=== PATIENT | female | born 1965 | race African-American/Black ===

== ENCOUNTER 2018-02-28 20:25 | Emergency (ER) | payer BC ==
[2018-02-28] MEDS ORDERED: NORMAL SALINE 1000 ML 1,000 ML IV ONE (20:51)
[2018-02-28] MEDS ORDERED: DIPHENHYDRAMINE HCL 50 MG/ML VIAL IV ONE (20:51)
--- NOTE | 2018-02-28 20:54 | ER Document Report ---
ED General - General Chief Complaint: Headache Stated Complaint: HEADACHE Time Seen by Provider: 02/28/18 20:50 TRAVEL OUTSIDE OF THE [place] IN LAST 30 DAYS: No - HPI Notes: Patient is a 52-year-old female that presents to the emergency department for chief complaint of headache. Patient was referred here from her primary care doctor's office with a chief complaint of headache and left-sided numbness. She states her left upper and lower extremity have been numb since the beginning of February. She states she had an outpatient MRI on February 06 which showed that she may have had a stroke or TIA. Patient was told to begin taking a baby aspirin daily which she has been doing. She states she was referred to neurology but has not had her appointment yet. She denies any change in her left-sided numbness today. She denies any new numbness or weakness. She is describing a headache that is bitemporal and a squeezing sensation. It started at 6 PM today and was gradual in onset. She has a history of migraines and states this feels similar but is more severe. She had some blurry vision at onset of the headache which has now resolved. She states at the beginning of February when she had the new left- sided weakness she had double vision, double vision has not occurred since then. She denies any head injury, chest pain, shortness of breath, diaphoresis, nausea or vomiting. Patient denies photophobia and phonophobia. She has not taken medication for her headache. Past Medical History: Hypertension Past Surgical History: Reviewed in chart Social History: Denies drugs alcohol and tobacco Family History: Reviewed and noncontributory for presenting illness Allergies: Reviewed, see documented allergy list. REVIEW OF SYSTEMS: CONSTITUTIONAL : No fever No chills No diaphoresis No recent illness EENT: vision changes No congestion No sore throat CARDIOVASCULAR: No chest pain No palpitations RESPIRATORY: No shortness of breath No cough No difficulty breathing GASTROINTESTINAL: No abdominal pain No nausea No vomiting No diarrhea GENITOURINARY: No dysuria No hematuria No difficulty urinating MUSCULOSKELETAL: No back pain No leg pain No arm pain SKIN: No rashes No lesions LYMPHATIC: No swollen, enlarged glands. NEUROLOGICAL: No lightheadedness headache No weakness No paresthesias PSYCHIATRIC: No anxiety No depression PHYSICAL EXAMINATION: Vital signs reviewed, nursing noted reviewed. GENERAL: Well-appearing, well-nourished and in no acute distress. HEAD: Atraumatic, normocephalic. EYES: Eyes appear normal, extraocular movements intact, sclera anicteric, conjunctiva are normal. ENT: nares patent, oropharynx clear without exudates. Moist mucous membranes. NECK: Normal range of motion, supple without lymphadenopathy LUNGS: Breath sounds clear to auscultation bilaterally and equal. No wheezes rales or rhonchi. HEART: Regular rate and rhythm without murmurs ABDOMEN: Soft, nontender, normoactive bowel sounds. No rebound, guarding, or rigidity. No masses appreciated. EXTREMITIES: Nontender, good range of motion, no pitting or edema. NEUROLOGICAL: NIH=0, no focal neurological deficits. Moves all extremities spontaneously Motor and sensory grossly intact on exam. PSYCH: Normal mood, normal affect. SKIN: Warm, Dry, normal turgor, no rashes or lesions noted on exposed skin - Related Data Allergies/Adverse Reactions: latex Allergy (Verified 02/28/18 20:29) Past Medical History - Social History Smoking Status: Never Smoker Family History: Reviewed & Not Pertinent Physical Exam - Vital signs Vitals: Resp BP Pulse Ox 13 136/82 H 100 02/28/18 20:51 02/28/18 20:51 02/28/18 20:51 Course - Re-evaluation Re-evalutation: 02/28/18 20:54 Vitals reviewed. Nursing notes reviewed. Patient has an NIH of 0 and is not a candidate for TPA. She has no numbness today that is new. On sensory testing she reports feeling normal sensation in her bilateral upper and lower extremities. I do not detect any focal neurologic deficits. She will be given IV fluids, Reglan and Benadryl for her headache. 02/28/18 22:03 Patient reevaluated and states her vision changes have completely resolved. Her headache is very minimal. She states this headache does feel similar to previous migraines in the past. She presented with no focal or new neurologic deficits. The numbness on her left side is chronic and has been evaluated by a neurologist including workup with an MRI of her brain. Her symptoms today are l ikely related to migraine headache and not acute stroke. Her lab work is unremarkable. Patient was advised by neurology to begin taking aspirin daily which I encouraged her to continue doing. She states she is trying to get a second opinion from a different neurologist. I advised that she call her primary care doctor tomorrow morning for follow-up. Her primary care should be able to assist her in getting another neurology evaluation. I did credit counselor her at length on stroke symptoms and indications to return to the emergency room which she understands. She is stable at discharge. Laboratory 02/28/18 02/28/18 02/28/18 20:52 21:00 21:00 WBC 5.3 RBC 5.21 Hgb 13.8 Hct 42.0 MCV 81 MCH 26.5 L MCHC 33.0 RDW 14.8 H Plt Count 257 Seg Neutrophils % 46.5 Lymphocytes % 41.9 Monocytes % 6.7 Eosinophils % 4.0 Basophils % 0.9 Absolute Neutrophils 2.5 Absolute Lymphocytes 2.2 Absolute Monocytes 0.4 Absolute Eosinophils 0.2 Absolute Basophils 0.0 Sodium 139.4 Potassium 4.6 Chloride 105 Carbon Dioxide 24 Anion Gap 10 BUN 13 Creatinine 0.66 Est GFR ( Amer) > 60 Est GFR (Non-Af Amer) > 60 Glucose 92 POC Glucose 84 Calcium 9.6 Troponin I 02/28/18 21:00 WBC RBC Hgb Hct MCV MCH MCHC RDW Plt Count Seg Neutrophils % Lymphocytes % Monocytes % Eosinophils % Basophils % Absolute Neutrophils Absolute Lymphocytes Absolute Monocytes Absolute Eosinophils Absolute Basophils Sodium Potassium Chloride Carbon Dioxide Anion Gap BUN Creatinine Est GFR ( Amer) Est GFR (Non-Af Amer) Glucose POC Glucose Calcium Troponin I < 0.[address] 02/28/18 00:00 IMPRESSION: No acute intracranial abnormality is identified. Chest X-Ray 02/28/18 20:50 IMPRESSION: No evidence of acute cardiopulmonary disease. - Vital Signs Vital signs: Temp Pulse Resp BP Pulse Ox 78 17 132/74 H 100 02/28/18 21:19 02/28/18 21:19 02/28/18 21:19 02/28/18 21:19 - Laboratory Result Diagrams: 02/28/18 21:00 02/28/18 21:00 Laboratory results interpreted by me: 02/28/18 21:00 MCH 26.5 L RDW 14.8 H - EKG Interpretation by Me Additional EKG results interpreted by me: 02/28/18 21:14 Interpreted by myself 2055: Normal sinus rhythm, rate 78, normal axis, no ectopy, no ST elevation Discharge - Discharge Clinical Impression: Cephalgia Qualifiers: Headache type: unspecified Headache chronicity pattern: acute headache Intrac tability: not intractable Qualified Code(s): R51 - Headache Condition: Stable Disposition: HOME, SELF-CARE Instructions: Headache ([facility]) Additional Instructions: Please return to the emergency department if you have any worsening, or concern of your symptoms. Please return to the emergency department if you develop chest pain, difficulty breathing, severe abdominal pain, or ongoing vomiting. Please follow-up with your primary care physician in 2-3 days and any other recommended physicians. If prescribed, take all medications as directed. If you have any questions or concerns do not hesitate to return the emergency department for evaluation. Follow-up with your primary care doctor to assist in getting a second opinion by neurology. If you develop any double vision or loss of vision, confusion, difficulty speaking, facial weakness, or new numbness or weakness in your arms or legs please return immediately to the emergency room. Referrals: GONZALEZ JUARES FNP [Primary Care Provider] - Follow up in 3-5 days
--- NOTE | 2018-02-28 21:12 | RADIOLOGY REPORT (SQ) ---
EXAM DESCRIPTION: CT HEAD WITHOUT IV CONTRAST COMPLETED DATE/TME: 02/28/2018 00:00 CLINICAL HISTORY: 52 years Female HARDIN and numbness COMPARISON: None. TECHNIQUE: Contiguous axial CT images obtained through the brain without IV contrast. This exam was performed according to our department optimization program which includes automated exposure control, adjustment of the mA and/or kv according to patient size and/or use of iterative reconstruction technique. FINDINGS: The ventricles and sulci are within normal limits for the patient's age. No midline shift or mass effect. No masses identified. No acute intracranial hemorrhage. No fluid or significant mucosal thickening in the visualized paranasal sinuses. No depressed calvarial fractures. IMPRESSION: No acute intracranial abnormality is identified.
[2018-02-28 21:16] LABS: ABSOLUTE EOSINOPHILS # (AUTO) 0.2 10^3/uL (0.0-0.6); ABSOLUTE LYMPHOCYTES (AUTO) 2.2 10^3/uL (0.5-4.7); ABSOLUTE MONOCYTES (AUTO) 0.4 10^3/uL (0.1-1.4); ABSOLUTE NEUT (AUTO) 2.5 10^3/uL (1.7-8.2); BASOPHILS % (AUTO) 0.9 % (0-2); HEMOGLOBIN 13.8 g/dL (12.0-15.5); LYMPHOCYTES % (AUTO) 41.9 % (13-45); MEAN CORPUSCULAR HEMOGLOBIN 26.5 pg (27.0-33.4); MEAN CORPUSCULAR VOLUME 81 fl (80-97); MONOCYTES % (AUTO) 6.7 % (3-13); PLATELET COUNT 257 10^3/uL (150-450); RED BLOOD COUNT 5.21 10^6/uL (3.72-5.28); RED CELL DISTRIBUTION WIDTH 14.8 % (11.5-14.0); SEGMENTED NEUTROPHILS % (AUTO) 46.5 % (42-78); TOTAL CELLS COUNTED % (AUTO) 100 %; WHITE BLOOD COUNT 5.3 10^3/uL (4.0-10.5)
[2018-02-28 21:28] LABS: ANION GAP 10 (5-19); BLOOD UREA NITROGEN 13 mg/dL (7-20); CALCIUM 9.6 mg/dL (8.4-10.2); CARBON DIOXIDE 24 mmol/L (22-30); CHLORIDE 105 mmol/L (98-107); GLUCOSE 92 mg/dL (75-110); POTASSIUM 4.6 mmol/L (3.6-5.0); SODIUM 139.4 mmol/L (137-145)
--- NOTE | 2018-02-28 21:50 | RADIOLOGY REPORT (SQ) ---
EXAM DESCRIPTION: XR CHEST 1 VIEW COMPLETED DATE/TME: 02/28/2018 20:50 CLINICAL HISTORY: stroke symptoms COMPARISON: None FINDINGS: Cardiac silhouette is within normal limits. EKG leads project over the chest. Decreased lung volumes could be secondary to underinflation. There is no focal parenchymal or pleural disease. There is no acute osseous process visualized. IMPRESSION: No evidence of acute cardiopulmonary disease.
[2018-02-28 22:21] VITALS: BP 137/85
--- NOTE | 2018-03-01 14:52 | EKG REPORT ---
SEVERITY:- NORMAL ECG - SINUS RHYTHM : Confirmed by: Haja Denny 01-Mar-2018 14:52:34
== END 2018-02-28 22:21 | disposition home or self-care (01) ==
LOC: ER 20:25
DX: R51 Headache (principal); R20.0 Anesthesia of skin; I10 Essential (primary) hypertension; Z79.82 Long term (current) use of aspirin; Z86.69 Personal history of other diseases of the nervous system and sense organs; Z91.040 Latex allergy status
CPT/HCPCS: 93005; 99285; 96361; 96374; 36415; 82962; 85025; 80048; 84484; 71045; 70450; 93010; J1200; J7030

== ENCOUNTER → 2019-02-11 | Outpatient (CLI) | payer OTHER ==
--- NOTE | 2019-02-11 10:52 | WOMENS IMAGING REPORT ---
EXAM DESCRIPTION: 3D SCREENING MAMMO BILAT COMPLETED DATE/TIME: 02/11/2019 9:58 am REASON FOR STUDY: ROUTINE SCREENING MAMMOGRAM Z12.31 COMPARISON: 2009, [id number] EXAM PARAMETERS: Standard craniocaudal and mediolateral oblique views of each breast recorded using digital acquisition and breast tomosynthesis. Read with the assistance of CAD. .[facility] - [employer] Civil Engineer Helper Version 9.2 LIMITATIONS: None. FINDINGS: Findings present which are benign by mammographic criteria. No suspicious masses, calcific ations or architectural distortion. Pertinent benign findings: Left cysts. Benign mammographic findings may include one or more of the following: Smooth masses, popcorn/rim/coa rse calcifications, asymmetries, post-procedure changes, and lesions with long-standing stability. IMPRESSION: BENIGN MAMMOGRAPHIC FINDINGS. BIRADS 2 BREAST DENSITY: b. There are scattered areas of fibroglandular density. BIRAD: ASSESSMENT: 2 BENIGN FINDING(S) RECOMMENDATION: ROUTINE SCREENING COMMENT: The patient has been notified of the results by letter per SA requirements. Additional no tification policies are in place for contacting patient with suspicious or incomplete findings. Quality ID #225: The [employer] recommends an annual screening mammogram for women aged 40 years or over. This facility utilizes a reminder system to ensure that all patients receive reminder letters, and/or direct phone calls for appointments. This includes reminders for routine scr eening mammograms, diagnostic mammograms, or other Breast Imaging Interventions when appropriate. Th is patient will be placed in the appropriate reminder system. TECHNICAL DOCUMENTATION: FINDING NUMBER: (1) ASSESSMENT: (1) JOB ID: [id number] [email or web address]- All Rights Reserved Reading location - IP/workstation name: [email or web address]
== END ==
LOC: WI 09:47
PROVIDERS: ATTEND Internal Medicine
DX: Z12.31 Encounter for screening mammogram for malignant neoplasm of breast (principal)
CPT/HCPCS: 77063; 77067

== ENCOUNTER 2019-06-21 09:17 | Emergency (ER) | payer OTHER, BC ==
--- NOTE | 2019-06-21 09:40 | ER Document Report ---
ED Medical Screen (RME) - General Chief Complaint: Eye Problem Stated Complaint: LEFT EYE PAIN, SWELLING Time Seen by Provider: 06/21/19 09:33 Primary Care Provider: CHLOE BORJA DO [Primary Care Provider] - Follow up as needed Mode of Arrival: Ambulatory Information source: Patient Notes: 54-year-old female presented to ED for a swollen painful left eye. She states she went to the eye [place] [facility] due to a bump above her left eye a bump on her left eyelid a bump to the side of her face and one beside her ear and they started her on Valtrex told her if he got any worse to call back. She states she called back because the eye is getting more more swollen more more painful. Patient states they did not give her any new drops or medicines for he r eye just the Valtrex told her that she had shingles. She states when she called the patrol lady today they told her to come to the ER and get a CAT scan that he had called to the ER in order the CAT scan. I have checked with the charge nurse and no call has been made. Patient says she does have a history of glaucoma elevated cholesterol and stroke and there every day this eye is getting worse and more swollen. She states she is taking the Valtrex as ordered. I have greeted and performed a rapid initial assessment of this patient. A comprehensive ED assessment and evaluation of the patient, analysis of test results and completion of medical decision making process will be conducted by an additional ED providers. TRAVEL OUTSIDE OF THE [place] IN LAST 30 DAYS: No - Related Data Allergies/Adverse Reactions: latex Allergy (Verified 02/28/18 20:29) Past Medical History - Past Medical History Cardiac Medical History: Reports: Hx Hypercholesterolemia Pulmonary Medical History: Reports: Hx Asthma, Hx Bronchitis Neurological Medical History: Reports: Hx Migraine Renal/ Medical History: Denies: Hx Peritoneal Dialysis Past Surgical History: Reports: Hx Hysterectomy Physical Exam - Vital signs Vitals: Temp Pulse Resp BP Pulse Ox 98.6 F 86 18 135/74 H 99 06/21/19 09:19 06/21/19 09:19 06/21/19 09:19 06/21/19 09:19 06/21/19 09:19 Course - Vital Signs Vital signs: Temp Pulse Resp BP Pulse Ox 98.6 F 86 18 135/74 H 99 06/21/19 09:19 06/21/19 09:19 06/21/19 09:19 06/21/19 09:19 06/21/19 09:19 Doctor's Discharge - Discharge Referrals: CHLOE BORJA, [Primary Care Provider] - Follow up as needed
[2019-06-21 11:13] LABS: ABSOLUTE EOSINOPHILS # (AUTO) 0.1 10^3/uL (0.0-0.6); ABSOLUTE LYMPHOCYTES (AUTO) 1.5 10^3/uL (0.5-4.7); ABSOLUTE MONOCYTES (AUTO) 0.4 10^3/uL (0.1-1.4); ABSOLUTE NEUT (AUTO) 1.9 10^3/uL (1.7-8.2); BASOPHILS % (AUTO) 0.8 % (0-2); EOSINOPHILS % (AUTO) 2.2 % (0-6); HEMATOCRIT 39.4 % (36.0-47.0); HEMOGLOBIN 13.4 g/dL (12.0-15.5); MEAN CORPUSCULAR HEMOGLOBIN 28.3 pg (27.0-33.4); MEAN CORPUSCULAR HGB CONC 33.9 g/dL (32.0-36.0); MEAN CORPUSCULAR VOLUME 83 fl (80-97); MONOCYTES % (AUTO) 9.8 % (3-13); PLATELET COUNT 210 10^3/uL (150-450); RED BLOOD COUNT 4.73 10^6/uL (3.72-5.28); RED CELL DISTRIBUTION WIDTH 14.4 % (11.5-14.0); SEGMENTED NEUTROPHILS % (AUTO) 49.2 % (42-78); TOTAL CELLS COUNTED % (AUTO) 100 %; WHITE BLOOD COUNT 3.9 10^3/uL (4.0-10.5)
--- NOTE | 2019-06-21 11:26 | RADIOLOGY REPORT (SQ) ---
EXAM DESCRIPTION: CT FACIAL AREA WITHOUT IMAGES COMPLETED DATE/TIME: 06/21/2019 11:11 am REASON FOR STUDY: left periorbital swelling,Dx:shingles COMPARISON: None. TECHNIQUE: Noncontrasted images through the facial bones and orbits windowed for bone and soft tissu e. Additional coronal and sagittal reconstructed images reviewed. All images stored on PACS. All CT scanners at this facility use dose modulation, iterative reconstruction, and/or weight based d osing when appropriate to reduce radiation dose to as low as reasonably achievable (ALARA). [facility]: Dose Right [facility]: CareDose [facility]: Dose Right [facility]: Teradose 4D [facility]: [employer] RADIATION DOSE: CT Rad equipment meets quality standard of care and radiation dose reduction techniq ues were employed. CTDIvol: 30.4 mGy. DLP: 526 mGy-cm. mGy. LIMITATIONS: None. FINDINGS: FACIAL BONES: No fracture or bone lesion. ORBITS: Left preseptal periorbital soft tissue swelling. No foreign body or focal abscess. Globes i ntact. Retro-orbital soft tissues are symmetric and maintained. PARANASAL SINUSES: Clear. No significant mucosal thickening, mass or fluid. No nasal polyps. Maxill merlyn sinus outlets are patent. SOFT TISSUES: No mass or edema. INFERIOR BRAIN: Limited view. No acute findings. OTHER: No other significant finding. IMPRESSION: 1. Left preseptal orbital cellulitis. TECHNICAL DOCUMENTATION: JOB ID: [id number] Quality ID # [id number]: Final reports with documentation of one or more dose reduction techniques (e.g., Au tomated exposure control, adjustment of the mA and/or kV according to patient size, use of iterative reconstruction technique) 2010 [employer]- All Rights Reserved Reading location - IP/workstation name: [email or web address]
[2019-06-21 11:37] LABS: ALBUMIN 4.1 g/dL (3.5-5.0); ALKALINE PHOSPHATASE 113 U/L (38-126); ASPARTATE AMINO TRANSFERASE 27 U/L (14-36); BILIRUBIN,TOTAL 0.5 mg/dL (0.2-1.3); BLOOD UREA NITROGEN 14 mg/dL (7-20); CALCIUM 9.2 mg/dL (8.4-10.2); CHLORIDE 105 mmol/L (98-107); GLUCOSE 87 mg/dL (75-110); POTASSIUM 4.4 mmol/L (3.6-5.0); TOTAL PROTEIN 7.5 g/dL (6.3-8.2)
[2019-06-21 11:43] LABS: ANION GAP 3 (5-19); CARBON DIOXIDE 29 mmol/L (22-30)
[2019-06-21] MEDS ORDERED: CEFEPIME 2 GM/D5W RTU 2 GM/50 ML RTUPB IV ONE (12:15)
[2019-06-21] MEDS ORDERED: KETOROLAC TROMETHAMINE INJ/PF 30 MG/1 ML SDV IV ONE (12:16)
--- NOTE | 2019-06-21 13:36 | ER Document Report ---
Entered by LALA WILSON SCRIBE 06/21/19 1045 Acting as scribe for:JENNY SUTHERLAND MD ED Eye Complaint - General Chief Complaint: Eye Pain Stated Complaint: LEFT EYE PAIN, SWELLING Time Seen by Provider: 06/21/19 09:33 Primary Care Provider: CHLOE BORJA DO [NO LOCAL MD] - Follow up as needed Mode of Arrival: Ambulatory Information source: Patient Notes: This 54 year old female patient presents to the emergency department today with complaints of her left eye swelling. Patient states there is pain above her left eye and on her left neck. Patient states she saw an Fruit Picker x5 days ago for painful knots on the left side of her face and above her eye, and was told that they suspect she has shingles. Patient states she was given valtrex, which she has been taking since her appointment. Patient states she was going to visit the Fruit Picker in x2 days but woke up this morning with her left eye swollen. Patient states she called her Doctor and was told to come to the ED for a Head CT. Patient states her vision is blurry and has done a visual acuity test at her last appointment. Patient states it does not feel like there is anything in her eye and denies any pus draining. Patient states she has a mild headache, but it may be cause from taking the valtrex. TRAVEL OUTSIDE OF THE [place] IN LAST 30 DAYS: No - Related Data Allergies/Adverse Reactions: latex Allergy (Verified 02/28/18 20:29) Past Medical History - General Information source: Patient - Social History Smoking Status: Never Smoker Cigarette use (# per day): No Frequency of alcohol use: None Lives with: Friend Family History: Reviewed & Not Pertinent, Arthritis Patient has suicidal ideation: No Patient has homicidal ideation: No - Past Medical History Cardiac Medical History: Reports: Hx Hypercholesterolemia Pulmonary Medical History: Reports: Hx Asthma, Hx Bronchitis EENT Medical History: Reports: Eyes - Glaucoma - Uses eye drops. Neurological Medical History: Reports: Hx Migraine, Other - Vertigo. Suspected TIA in 2018. Skin Medical History: Reports Hx Eczema Past Surgical History: Reports: Hx Hysterectomy Review of Systems - Review of Systems Constitutional: No symptoms reported EENT: See HPI, Blurred vision, Other - Eye swelling Cardiovascular: No symptoms reported Respiratory: No symptoms reported Gastrointestinal: No symptoms reported Genitourinary: No symptoms reported Female Genitourinary: No symptoms reported Musculoskeletal: No symptoms reported Skin: See HPI Hematologic/Lymphatic: No symptoms reported Neurological/Psychological: See HPI, Headaches -: Yes All other systems reviewed and negative Physical Exam - Vital signs Vitals: Temp Pulse Resp BP Pulse Ox 98.6 F 86 18 135/74 H 99 06/21/19 09:19 06/21/19 09:19 06/21/19 09:19 06/21/19 09:19 06/21/19 09:19 - General General appearance: Appears well, Alert - HEENT Head: Other - Dry rash below the left eyebrow. Palpable lymphnode on the left anterior face. Eyes: Periorbital edema - Left. Conjunctiva: Normal Cornea: Normal Extraocular movements intact: Yes Eyelashes: Normal Pupils: PERRL Visual acuity- Right eye: 20/15 Visual acuity- Left eye: 0 Visual acuity- Both eyes: 0 Corrective lenses worn: Yes Fundascopic: Normal, Other - No papilledema.. No: Retinal hemorrhage - Respiratory Respiratory status: No respiratory distress Chest status: Nontender Breath sounds: Normal Chest palpation: Normal - Cardiovascular Rhythm: Regular Heart sounds: Normal auscultation Murmur: No - Abdominal Inspection: Obese Distension: No distension Bowel sounds: Normal Tenderness: Nontender - Extremities General upper extremity: Normal inspection. No: Edema General lower extremity: Normal inspection. No: Edema - Neurological Neuro grossly intact: Yes Cognition: Normal Orientation: AAOx4 - Psychological Associated symptoms: Normal affect, Normal mood - Skin Skin Temperature: Warm Skin Moisture: Dry Skin Color: Normal Course - Re-evaluation Re-evalutation: 06/21/19 13:26 Patient has completed antibiotics and repeat vision check was made with patient opening her left eye upper lid so that she could see. Patient's 2013 in the left eye in 2013 with both eyes open. Improvement in left periorbital swelling patient is able to lift her upper eyelid at this time. 06/21/19 13:[address] Henriquez, current roundhouse supervisor treating patient for her cellulitis and shingles periorbital swelling. Patient will be following up with Dr. Henriquez as an outpatient. Patient is to continue taking her Valtrex and I am adding Augmentin 875 mg twice a day for 7 days. - Vital Signs Vital signs: Temp Pulse Resp BP Pulse Ox 98.6 F 86 18 135/74 H 99 06/21/19 09:19 06/21/19 09:19 06/21/19 09:19 06/21/19 09:19 06/21/19 09:19 - Laboratory Result Diagrams: 06/21/19 11:03 06/21/19 11:03 Laboratory results interpreted by me: 06/21/19 06/21/19 11:03 11:03 WBC 3.9 L RDW 14.4 H Anion Gap 3 L Laboratory evaluation within normal limits. - Diagnostic Test Radiology reviewed: Image reviewed, Reports reviewed Radiology results interpreted by me: 06/21/19 13:31 CT scan of face shows left-sided preseptal orbital cellulitis. No other acute process noted. Discharge - Discharge Clinical Impression: Periorbital cellulitis of left eye, Shingles of eyelid Condition: Stable Disposition: HOME, SELF-CARE Additional Instructions: Cellulitis You have an infection of your skin and underlying soft tissues called cellulitis. This is due to bacteria, which can enter through any break in the skin, or even through an irritated hair follicle. Untreated, cellulitis will usually worsen. Antibiotics are required. Usually, warm packs or warm soaks, and elevation of the infected area are recommended. You should start getting better within 24 to 36 hours. Most infections respond quickly to the right medication. Follow-up care is important, however, to check for abscess (boil) formation, unsuspected foreign body, or resistant infection. If you develop fever, chills, or if the area of infection is becoming rapidly more swollen or painful, call the doctor at once. Shingles You have shingles. Shingles is caused by the chicken pox virus, The virus has been surviving dormant in a nerve cell since you had chicken pox years ago. The virus has spread down a nerve root to reach the skin. Typically, an band-like area of pain and skin sensitivity develops, then small blisters erupt in the area. Shingles lasts two or three weeks, but so metimes leaves persistent pain. You are contagious -- you can give children chicken pox. But you can't give anyone shingles. Antiviral medicines (such as acyclovir or famciclovir) can help, but the rash usually worsens for about a week. Pain medication is often given if the area hurts. Antihistamines such as Benadryl may be necessary for itching if it does not respond to soda baths and calamine lotion. Sometimes cortisone medicine or nerve-block shots are necessary if pain is severe. If the area remains severely painful as the sores heal, or if you suspect an infection developing in the sores, see your doctor. Follow-up with your roundhouse supervisor Dr. Bell. Continue same treatment for your shingles periorbital cellulitis. In addition Augmentin has been added in case there is any bacterial component to this swelling. Prescriptions: Amoxicillin/Potassium Clav [Augmentin 875-125 Tablet] 1 tab PO BID 7 Days #14 tab Referrals: CHLOE BORJA DO [NO LOCAL MD] - Follow up as needed KRISTA BELL MD [ACTIVE STAFF] - Follow up in 3-5 days I personally performed the services described in the documentation, reviewed and edited the documentation which was dictated to the scribe in my presence, and it accurately records my words and actions.
[2019-06-21 13:46] VITALS: BP 132/70
== END 2019-06-21 13:45 | disposition home or self-care (01) ==
LOC: ER 09:17
DX: L03.213 Periorbital cellulitis (principal); B02.39 Other herpes zoster eye disease; R51 Headache; Z91.040 Latex allergy status; J45.909 Unspecified asthma, uncomplicated
CPT/HCPCS: 99284; 96375; 96365; 36415; 85025; 80053; 70486; J1885; J0692

== ENCOUNTER 2019-10-13 09:33 | Emergency (ER) | payer OTHER, BC ==
--- NOTE | 2019-10-13 12:56 | RADIOLOGY REPORT (SQ) ---
EXAM DESCRIPTION: CHEST SINGLE VIEW IMAGES COMPLETED DATE/TIME: 10/13/2019 12:37 pm REASON FOR STUDY: chest pain COMPARISON: 02/28/2018 EXAM PARAMETERS: NUMBER OF VIEWS: One view. TECHNIQUE: Single frontal radiographic view of the chest acquired. RADIATION DOSE: NA LIMITATIONS: None. FINDINGS: LUNGS AND PLEURA: No opacities, masses or pneumothorax. No pleural effusion. MEDIASTINUM AND HILAR STRUCTURES: No masses. Contour normal. HEART AND VASCULAR STRUCTURES: Heart upper limits of normal in size. Normal vasculature. BONES: No acute findings. HARDWARE: None in the chest. OTHER: No other significant finding. IMPRESSION: 1. NO ACUTE RADIOGRAPHIC FINDING IN THE CHEST. TECHNICAL DOCUMENTATION: JOB ID: [id number] 2010 [employer]- All Rights Reserved Reading location - IP/workstation name: [email or web address]
--- NOTE | 2019-10-13 13:51 | ER Document Report ---
Entered by MALIKA ROGERS SCRIBE 10/13/19 1249 Acting as scribe for:MELO CRISTINA MD ED General - General Chief Complaint: Headache Stated Complaint: HEADACHE Time Seen by Provider: 10/13/19 11:40 Primary Care Provider: KLEBER,BROWN [Primary Care Provider] - Follow up as needed Mode of Arrival: Ambulatory Information source: Patient Notes: This 54 year old female patient presents to the emergency department today complaining of bilateral jaw pain yesterday that "felt like the mumps", left arm and shoulder pain that "felt like it was broken but I've never broken it before", a headache that began behind her eyes and then transitioned to a global headache, nausea, acid reflux, and bilateral ear pain. Patient reports all of those symptoms were yesterday and they have now all subsided. She reports that she went to an urgent care today and she was sent here. TRAVEL OUTSIDE OF THE [place] IN LAST 30 DAYS: No - Related Data Allergies/Adverse Reactions: latex Allergy (Verified 10/13/19 12:04) Home Medications: CoQ10. Lipitor Past Medical History - General Information source: Patient - Social History Smoking Status: Never Smoker Cigarette use (# per day): No Chew tobacco use (# tins/day): No Frequency of alcohol use: None Drug Abuse: None Lives with: Family Family History: Reviewed & Not Pertinent, Arthritis - Past Medical History Cardiac Medical History: Reports: Hx Hypercholesterolemia Pulmonary Medical History: Reports: Hx Asthma, Hx Bronchitis Neurological Medical History: Reports: Hx Migraine Skin Medical History: Reports Hx Eczema Past Surgical History: Reports: Hx Hysterectomy Review of Systems - Review of Systems Constitutional: No symptoms reported EENT: See HPI, Ear pain, Other - jaw pain Cardiovascular: No symptoms reported Respiratory: No symptoms reported Gastrointestinal: See HPI, Nausea Genitourinary: No symptoms reported Female Genitourinary: No symptoms reported Musculoskeletal: See HPI, Other - LUE pain Skin: No symptoms reported Hematologic/Lymphatic: No symptoms reported Neurological/Psychological: See HPI, Headaches -: Yes All other systems reviewed and negative Physical Exam - Vital signs Vitals: Temp Pulse Resp BP Pulse Ox 98.9 F 76 16 136/79 H 100 10/13/19 10:46 10/13/19 10:46 10/13/19 10:46 10/13/19 10:46 10/13/19 10:46 - Notes Notes: Physical Exam: General: Alert, appears well. HEENT: Normocephalic. Atraumatic. PERRL. Extraocular movements intact. No posterior oropharynx erythema or exudate, airway is patent. TMs are clear and non-bulging bilaterally. Neck: Supple. Non-tender. Respiratory: No respiratory distress. Clear and equal breath sounds bilaterally. Cardiovascular: Regular rate and rhythm. Abdominal: Obese. Non-tender. No distension. Normal Bowel Sounds. Back: No gross abnormalities. Extremities: Moves all four extremities. Upper extremities: Normal inspection. Normal ROM. Lower extremities: Normal inspection. No edema. Normal ROM. Neurological: Normal cognition. AAOx4. Normal speech. Psychological: Normal affect. Normal Mood. Skin: Warm. Dry. Normal color. Course - Re-evaluation Re-evalutation: 10/13/19 14:35 The patient was evaluated during the global COVID-19 pandemic and that diagnosis was suspected/considered upon their initial presentation. Their evaluation, treatment and testing was consistent with current guidelines for patients who present with complaints or symptoms that may be related to COVID-19. - Vital Signs Vital signs: Temp Pulse Resp BP Pulse Ox 98.9 F 76 16 136/79 H 100 10/13/19 10:46 10/13/19 10:46 10/13/19 10:46 10/13/19 10:46 10/13/19 10:46 - Laboratory Result Diagrams: 10/13/19 13:28 10/13/19 13:28 Laboratory results interpreted by me: 10/13/19 10/13/19 10/13/19 13:28 13:28 13:28 RDW 14.3 H Sodium 136.8 L Urine Ascorbic Acid 40 H - Diagnostic Test Radiology reviewed: Image reviewed, Reports reviewed - Chest x-ray does not show acute radiographic findings - EKG Interpretation by Nh EKG shows normal: Sinus rhythm, Tyner, Intervals, QRS Complexes, ST-T Waves Rate: Normal - 72 Rhythm: NSR Discharge - Discharge Clinical Impression: Jaw pain, Nausea, Earache Headache Qualifiers: Headache type: unspecified Headache chronicity pattern: unspecified pattern Intractability: not intractable Qualified Code(s): R51 - Headache Condition: Stable Disposition: HOME, SELF-CARE Instructions: COVID-19 Guidance for Persons Under Investigation Additional Instructions: Viral Syndrome The physician has diagnosed a viral infection. Viruses not only cause "colds," but can cause many different symptoms including generalized aching, fever, headache, cough, diarrhea, nausea, vomiting, and fatigue. The treatment, for the most part, is simply relief of symptoms. This means that antibiotics are usually not given. Rest, fluids, pain medications and, occasionally, medication for the specific symptoms that are most bothersome will be prescribed. Use good handwashing to avoid passing the virus to others. Shared toys should be cleaned with disinfectant. Clean the toilets, sinks, and counter surfaces in bathrooms. Launder clothing in hot water. Contact the physician if you develop any new or unusual symptoms such as severe headache, stiff neck, high fever, chest pain, productive cough, or shortness of breath. You should be rechecked if you don't see marked improve ment within seven to 10 days. Your symptoms you described from yesterday are most consistent with a viral syndrome. In this area of COVID-19 infections with multiple different type viral symptoms being reported, it is important that you also be tested for the COVID-19 virus. You should self quarantine at home until you get results of your cover test. Follow-up with your primary care provider if your symptoms continue to be a problem. RETURN TO THE EMERGENCY ROOM IF ANY NEW OR WORSENING SYMPTOMS. Referrals: [facility] [Primary [facility] Provider] - Follow up as needed I personally performed the services described in the documentation, reviewed and edited the documentation which was dictated to the scribe in my presence, and it accurately records my words and actions.
[2019-10-13 14:07] LABS: ABSOLUTE BASOPHILS # (AUTO) 0.1 10^3/uL (0.0-0.2); ABSOLUTE EOSINOPHILS # (AUTO) 0.1 10^3/uL (0.0-0.6); ABSOLUTE LYMPHOCYTES (AUTO) 1.7 10^3/uL (0.5-4.7); ABSOLUTE MONOCYTES (AUTO) 0.4 10^3/uL (0.1-1.4); BASOPHILS % (AUTO) 1.2 % (0-2); EOSINOPHILS % (AUTO) 2.8 % (0-6); HEMATOCRIT 41.5 % (36.0-47.0); HEMOGLOBIN 13.7 g/dL (12.0-15.5); MEAN CORPUSCULAR HEMOGLOBIN 27.8 pg (27.0-33.4); MEAN CORPUSCULAR VOLUME 84 fl (80-97); MONOCYTES % (AUTO) 9.3 % (3-13); PLATELET COUNT 230 10^3/uL (150-450); RED BLOOD COUNT 4.93 10^6/uL (3.72-5.28); RED CELL DISTRIBUTION WIDTH 14.3 % (11.5-14.0); SEGMENTED NEUTROPHILS % (AUTO) 46.7 % (42-78); TOTAL CELLS COUNTED % (AUTO) 100 %; WHITE BLOOD COUNT 4.4 10^3/uL (4.0-10.5)
[2019-10-13 14:24] LABS: ALBUMIN 4.3 g/dL (3.5-5.0); ALKALINE PHOSPHATASE 125 U/L (38-126); ANION GAP 6 (5-19); ASPARTATE AMINO TRANSFERASE 24 U/L (14-36); BILIRUBIN,TOTAL 0.4 mg/dL (0.2-1.3); BLOOD UREA NITROGEN 11 mg/dL (7-20); CALCIUM 9.6 mg/dL (8.4-10.2); CARBON DIOXIDE 27 mmol/L (22-30); CHLORIDE 104 mmol/L (98-107); CREATINE KINASE 124 U/L (30-135); GLUCOSE 86 mg/dL (75-110); POTASSIUM 4.5 mmol/L (3.6-5.0); TOTAL PROTEIN 8.2 g/dL (6.3-8.2)
[2019-10-13 14:26] LABS: APPEARANCE,URINE SLIGHTLY-CLOUDY; BILIRUBIN,URINE NEGATIVE (NEGATIVE); COLOR,URINE YELLOW; GLUCOSE, URINE NEGATIVE (NEGATIVE); KETONES,URINE NEGATIVE (NEGATIVE); LEUKOCYTE ESTERASE,URINE NEGATIVE (NEGATIVE); NITRITE,URINE NEGATIVE (NEGATIVE); PROTEIN,URINE NEGATIVE (NEGATIVE); URINE SPECIFIC GRAVITY 1.019; UROBILINOGEN,URINE NEGATIVE mg/dL (<2.0)
[2019-10-13 15:27] VITALS: BP 135/87
--- NOTE | 2019-10-13 19:10 | EKG REPORT ---
SEVERITY:- NORMAL ECG - SINUS RHYTHM : Confirmed by: Haja Denny 13-Oct-2019 19:09:42
== END 2019-10-13 15:30 | disposition home or self-care (01) ==
LOC: ER 09:33
DX: R51 Headache (principal); R68.84 Jaw pain; R11.0 Nausea; H92.09 Otalgia, unspecified ear; Z20.828 Contact with and (suspected) exposure to other viral communicable diseases; E78.00 Pure hypercholesterolemia, unspecified; Z90.710 Acquired absence of both cervix and uterus
CPT/HCPCS: 93005; 99285; 36415; 82550; 85025; 87635; 80053; 81001; 84484; 71045; 93010; C9803